=== PATIENT | male | born 1945 | race Caucasian/White ===

== ENCOUNTER 2016-04-20 17:05 | Observation (INO) | payer MEDICARE ==
[2016-04-21] MEDS ORDERED: B COMPLEX1 EACH PO (11:01)
[2016-04-21] MEDS ORDERED: COREG3.125 MG PO (11:01)
[2016-04-21] MEDS ORDERED: PACERONE200 MG PO (11:03)
[2016-04-21] MEDS ORDERED: LIPITOR10 MG PO (11:04)
[2016-04-21] MEDS ORDERED: FIBER LAX625 MG PO (11:04)
[2016-04-21] MEDS ORDERED: ROCALTROL0.25 MCG PO (11:04)
[2016-04-21] MEDS ORDERED: ZYLOPRIM100 MG PO (11:04)
[2016-04-21] MEDS ORDERED: SLOW RELEASE47.5 MG PO (11:05)
[2016-04-21] MEDS ORDERED: CALCIUM ACETAT667 M1 PO (11:05)
[2016-04-21] MEDS ORDERED: OMEPRAZOLE40 MG PO (11:05)
[2016-04-21] MEDS ORDERED: KETOCONAZOLE15 GM TOP (11:06)
[2016-04-21] MEDS ORDERED: LOTRIMIN15 GM TOP (11:06)
[2016-04-21] MEDS ORDERED: CLINDAMYCI600 MG/50 IV (11:07)
== END 2016-04-21 15:40 | disposition short-term general hospital (02) ==
LOC: ER 17:05 → MED 19:56
PROVIDERS: ADMIT Internal Medicine
DX: T81.4XXA Infection following a procedure, initial encounter (principal); A41.9 Sepsis, unspecified organism; L02.415 Cutaneous abscess of right lower limb; L03.115 Cellulitis of right lower limb; L76.22 Postprocedural hemorrhage of skin and subcutaneous tissue following other procedure; I12.0 Hypertensive chronic kidney disease with stage 5 chronic kidney disease or end stage renal disease; N18.6 End stage renal disease; I25.5 Ischemic cardiomyopathy; I48.0 Paroxysmal atrial fibrillation; I25.2 Old myocardial infarction; G47.30 Sleep apnea, unspecified; Z79.01 Long term (current) use of anticoagulants; Z85.038 Personal history of other malignant neoplasm of large intestine; Z90.49 Acquired absence of other specified parts of digestive tract; Z79.82 Long term (current) use of aspirin; Z79.899 Other long term (current) drug therapy; Y83.8 Other surgical procedures as the cause of abnormal reaction of the patient, or of later complication, without mention of misadventure at the time of the procedure
CPT/HCPCS: 36415; 96374; G0378